=== PATIENT | female | born 1960 | race Caucasian/White ===

== ENCOUNTER 2018-06-22 07:32 | Outpatient (CLI) | payer BC ==
[2018-06-22 09:44] LABS: #Eosinphils 0.1 thou/uL (0.0-0.7); #Lymphocytes 2.4 thou/uL (1.20-3.40); #Monocytes 0.5 thou/uL (0.11-0.59); #Neutrophils 1.9 thou/uL (1.40-6.50); %Basophils 0.5 % (0.0-1.0); %Eosinophils 2.6 % (0.0-10.0); %Lymphocytes 48.1 % (21.0-51.0); %Monocytes 10.6 % (0.0-10.0); %Neutrophils 38.2 % (42.0-75.0); Hemoglobin 13.6 g/dL (12.0-16.0); Mean Corpuscular HGB CONC 35.4 g/dL (32.0-36.0); Mean Corpuscular Hemoglobin 34.5 pg (27.0-31.0); Mean Corpuscular Volume 97.3 fL (78.0-98.0); Mean Platelet Volume 8.5 fL (7.4-10.4); Platelet Count 206 thou/uL (130-400); RBC Distribution Width 10.9 % (11.5-14.5); Red Blood Cell (RBC) Count 3.94 mill/uL (4.20-5.40); White Blood Cell (WBC) Count 5.1 thou/uL (4.8-10.8)
== END 2018-06-22 07:33 | disposition home or self-care (01) ==
LOC: LABBT 07:32
PROVIDERS: ATTEND Orthopaedic Surgery
DX: Z01.812 Encounter for preprocedural laboratory examination (principal); M17.12 Unilateral primary osteoarthritis, left knee
CPT/HCPCS: 85025

== ENCOUNTER 2018-06-23 06:56 | Day surgery (SDC) | payer BC ==
[2018-06-22 08:48] VITALS: BMI 30.9
[2018-06-23] MEDS ORDERED: CEFAZOLIN 2 GM/50 ML BAG ONE (07:18)
[2018-06-23] MEDS ORDERED: Lidocaine 1% (PF) 30 ML VIAL ONE (09:01)
[2018-06-23] MEDS ORDERED: Bupivacaine/Epinephrine 0.25% 30 ML VIAL ONE (09:01)
[2018-06-23] MEDS ORDERED: Fentanyl 100 MCG/2 ML VIAL ONE (10:34)
[2018-06-23] MEDS ORDERED: Ondansetron PF 4 MG/2 ML Vial ONE (12:58)
[2018-06-23] MEDS ORDERED: Ketorolac Tromethamine 30 MG/ML VIAL ONE (12:58)
[2018-06-23] MEDS ORDERED: Lidocaine 1% PF 5 ML VIAL ONE (12:58)
[2018-06-23] MEDS ORDERED: PROPOFOL 200 MG/20 ML VIAL ONE (12:58)
[2018-06-23] MEDS ORDERED: Metoclopramide HCl 10 MG/2 ML VIAL ONE (12:58)
[2018-06-23] MEDS ORDERED: Dexamethasone 20 MG/5 ML VIAL ONE (12:58)
--- NOTE | 2018-06-24 00:12 | OP ---
DATE OF PROCEDURE: 06/23/2018 PREOPERATIVE DIAGNOSIS: Possible medial meniscal tear, possible full-thickness cartilage defect. POSTOPERATIVE DIAGNOSES: 1. Grade 4 full-thickness medial femoral condyle defect 5 x 5 mm with grade 2 and 3 changes noted throughout the medial femoral condyle. 2. Fissuring noted trochlear groove. 3. Grade 1 changes lateral femoral condyle. 4. No lateral or medial meniscus tears. PROCEDURE PERFORMED: Debridement and shaving. HABILITATION WORKER: None. ANESTHESIA: Dr. Eid. The patient received a LMA intubation with 25 mL of 0.25% Marcaine with epi preprocedure, which was 25 mL of lidocaine plain postprocedure. ESTIMATED BLOOD LOSS: 20 mL. TOURNIQUET TIME: 12 minutes at 300 mmHg. ANTIBIOTICS: Ancef 2 g. COMPLICATION: None. HISTORY OF PRESENT ILLNESS: Helen is a pleasant 58-year-old female, who has had pain for over 6 months, worse within the last several months. The patient had an outside MRI, which showed no full-thickness cartilage defect, a free edge tear of the medial meniscus without discrete tear. I discussed with the patient risks and benefits of arthroscopic evaluation of her knee, felt that this possibly would be early degenerative changes, felt that we would have to attempt a scope debridement as a primary status, discussed that potentially she may require total knee in the future. I discussed risks and benefits of the scope procedure to include pain, scar, bleeding, infection, damage to vital structures, decreased range of motion and strength, continued pain despite surgical intervention, loss of life or limb. The patient understood the risks and benefits of procedure. She liked to proceed. DESCRIPTION OF PROCEDURE/FINDINGS: A time-out was performed designating the patient's left lower extremity as the operative site based on site, consents, and marking. After time-out, the patient's tourniquet was brought up to the left for 12 minutes. The anterolateral and anteromedial portals visualized intra- articularly and looked in the patella fat pad with loose bodies, looked at medial and lateral of the menisci. There were no tears of the medial or lateral menisci. There was a full-thickness cartilage defect in medial femoral condyle, which was a 5 x 5 mm with grade 2 and 3 changes throughout the medial femoral condyle consistent with early osteoarthritis. I did debridement and shaving all of 3 compartments. There were no loose bodies, looked in gutters to ensure there was no free loose bodies and excised the fat pad. I took my final pictures, washed and closed with 3-0 nylon. The patient will be touchdown weightbearing until I see her back as well as we will offload in the interim. The patient's outlook is guarded.. Job ID: [id number]
== END 2018-06-23 14:00 | disposition home or self-care (01) ==
LOC: SDC 06:56
PROVIDERS: ATTEND Orthopaedic Surgery
PROC: 0SBD4ZZ Excision of Left Knee Joint, Percutaneous Endoscopic Approach (ICD-10-PCS; principal; 2018-06-23)
DX: M94.8X8 Other specified disorders of cartilage, other site (principal); M25.862 Other specified joint disorders, left knee; E07.9 Disorder of thyroid, unspecified; Z79.899 Other long term (current) drug therapy
CPT/HCPCS: J0131; J1100; J1885; J2001; J2405; J2704; J2765; J3010